=== PATIENT | female | born 1965 | race Caucasian/White ===

== ENCOUNTER 2017-04-06 10:46 | Emergency (ER) | payer OTHER ==
[2017-04-06 10:51] VITALS: BP 151/94; PULSE 74; TEMP 98.1; BMI 25.7
--- NOTE | 2017-04-06 11:07 | PDOC ---
History of Present Illness - General Chief Complaint: Pain, Acute Stated Complaint: FLANK PAIN Time Seen by Provider: 04/06/17 10:48 History Source: Patient (Patient walked in complaining of back pain, fever, frequent urination for the last few days , unrelieved by OTC medications) Exam Limitations: No Limitations - History of Present Illness Timing/Duration: getting worse Severity: moderate, severe Associated Symptoms: reports: fever/chills Past History - Travel Traveled outside of the country in the last 30 days: No Close contact w/someone who was outside of country & ill: No - Past Medical History Allergies/Adverse Reactions: Allergies Allergy/AdvReac Type Severity Reaction Status Date / Time No Known Allergies Allergy Verified 04/06/17 10:47 Home Medications: Ambulatory Orders Loratadine [Claritin] 10 mg PO DAILY 04/06/17 COPD: No Other medical history: MIGRAINES - Surgical History Abdominal Surgery: Yes (tubal ligation) - Suicide/Smoking/Psychosocial Hx Smoking History: Never smoked Hx Alcohol Use: No Drug/Substance Use Hx: No Substance Use Type: None Review of Systems - Review of Systems Able to Perform ROS?: Yes Is the patient limited Nepalese proficient: Yes Constitutional: Yes: Symptoms Reported, Fever, Malaise HEENTM: Yes: Throat Pain Respiratory: No: Symptoms reported, See HPI, Cough, Orthopnea, Shortness of Breath, SOB with Exertion, SOB at Rest, Stridor, Wheezing, Productive cough, Hemoptysis, Other Cardiac (ROS): No: Symptoms Reported, See HPI, Chest Pain, Edema, Irregular Heart Rate, Lightheadedness, Palpitations, Syncope, Chest Tightness, Other ABD/GI: Yes: Other (suprapubic discomfort) : Yes: See HPI Musculoskeletal: Yes: Back Pain Integumentary: No: Symptoms Reported, See HPI, Bruising, Change in Color, Change in Hair/Nails, Dryness, Erythema, Flushing, Lesions, Lumps, Pallor, Pruritus, Rash, Sweating, Other Neurological: No: Symptoms reported, See HPI, Headache, Numbness, Paresthesia, Pre-Existing Deficit, Seizure, Tingling, Tremors, Weakness, Unsteady Gait, Ataxia, Dizziness, Other All Other Systems: Reviewed and Negative *Physical Exam - Vital Signs Last Vital Signs Temp Pulse Resp BP Pulse Ox 98.1 F 74 18 151/94 100 01/24/18 10:47 04/06/17 10:47 04/06/17 10:47 04/06/17 10:47 04/06/17 10:47 - Physical Exam General Appearance: Yes: Nourished, Appropriately Dressed, Moderate Distress HEENT: positive: Normal ENT Inspection Neck: positive: Supple Respiratory/Chest: positive: Lungs Clear Cardiovascular: positive: Regular Rate, S1, S2 Gastrointestinal/Abdominal: positive: Normal Bowel Sounds, Tender Musculoskeletal: positive: CVA Tenderness, CVA Tenderness (R), CVA Tenderness (L ) Extremity: positive: Normal Capillary Refill, Normal Inspection, Normal Range of Motion Integumentary: positive: Normal Color, Warm Neurologic: positive: Fully Oriented, Alert, Normal Mood/Affect ED Treatment Course - LABORATORY CBC & Chemistry Diagram: 04/06/17 11:02 04/06/17 11:02 *DC/Admit/Observation/Transfer Diagnosis at time of Disposition: Lower back pain Qualifiers: Chronicity: acute Back pain laterality: unspecified Sciatica presence: without sciatica Qualified Code(s): M54.5 - Low back pain - Discharge Dispostion Disposition: HOME Condition at time of disposition: Improved - Referrals Referrals: Jaden Urena MD [Primary Care Provider] - - Patient Instructions Printed Discharge Instructions: DI for Back Strain or Sprain Additional Instructions: Take the muscle relaxant along with Motrin OTC 2- 3 times a day with food - Post Discharge Activity
[2017-04-06] MEDS ORDERED: KETOROLAC TROMETHAMINE 30 MG/1 ML VIAL ONE (11:08)
[2017-04-06] MEDS ORDERED: KETOROLAC TROMETHAMINE 30 MG/1 ML VIAL IVPUSH ONE (11:08)
[2017-04-06 11:33] LABS: HCG,QUALITATIVE URINE NEGATIVE; PH,URINE 6.5 (4.5-8); URINE APPEARANCE Clear; URINE BILIRUBIN Negative (NEGATIVE); URINE GLUCOSE (UA) Negative (NEGATIVE); URINE KETONE Negative (NEGATIVE); URINE NITRITE Negative (NEGATIVE); URINE PROTEIN Negative (NEGATIVE); URINE UROBILINOGEN 0.2 (0.2-1.0)
[2017-04-06 11:34] LABS: URINE BLOOD 1+ (NEGATIVE); URINE COLOR YELLOW
[2017-04-06 11:35] LABS: BASO % 0.9 % (0-2.0); EOS % 0.1 % (0-4.5); HEMATOCRIT 44.6 % (32.4-45.2); HEMOGLOBIN 14.2 GM/dl (10.7-15.3); LYMPH % 37.5 % (8-40); MCH 27.2 pg (25.7-33.7); MCHC 31.7 g/dl (32.0-36.0); MEAN CELL VOLUME 85.7 fl (80-96); MEAN PLT VOLUME 8.4 fl (7.5-11.1); MONO % 5.8 % (3.8-10.2); NEUT % 55.7 % (42.8-82.8); PLATELET COUNT 294 K/MM3 (134-434); RBC 5.21 M/mm3 (3.60-5.2); WHITE BLOOD COUNT 5.7 K/mm3 (4.0-10.8)
[2017-04-06 11:36] LABS: ALBUMIN 4.3 g/dl (3.5-5.0); ALK PHOS 51 U/L (32-92); ANION GAP 7 (8-16); BILIRUBIN,TOTAL 1.1 mg/dl (0.2-1.0); BLOOD UREA NITROGEN 17 mg/dl (7-18); CALCIUM 9.1 mg/dl (8.4-10.2); CHLORIDE 100 mmol/L (98-107); CO2 28 mmol/L (22-28); GLUCOSE,RANDOM 116 mg/dl (74-106); POTASSIUM 3.8 mmol/L (3.5-5.1); SGOT/AST 22 U/L (10-42); SGPT/ALT 23 U/L (10-40); SODIUM 135 mmol/L (136-145); TOT PROT 7.5 g/dl (6.4-8.3)
[2017-04-06] MEDS ORDERED: SODIUM CHLORIDE 1,000 ML IV ONE (11:46)
[2017-04-06] MEDS ORDERED: CYCLOBENZAPRINE HCL 10 MG TABLET (FP) PO ONE (13:31)
[2017-04-06] MEDS ORDERED: CYCLOBENZAPRINE HCL 10 MG TABLET (FP) ONE (13:33)
[2017-04-06 17:58] LABS: URINE BACTERIA FEW /hpf (NEGATIVE); URINE WBC 0-2 (0-5)
== END 2017-04-06 13:41 | disposition home or self-care (01) ==
LOC: FER 10:46
PROC: 3E0333Z Introduction of Anti-inflammatory into Peripheral Vein, Percutaneous Approach (ICD-10-PCS; principal; 2017-04-06)
PROC: 3E0337Z Introduction of Electrolytic and Water Balance Substance into Peripheral Vein, Percutaneous Approach (ICD-10-PCS; 2017-04-06)
DX: M54.5 Low back pain (principal)
CPT/HCPCS: 36415; 74176-TC; 80053; 81003; 81015; 84703; 85025; 87086; 99283-25

== ENCOUNTER 2018-02-10 10:29 | Emergency (ER) | payer OTHER ==
--- NOTE | 2018-02-10 10:44 | PDOC ---
History of Present Illness - General Chief Complaint: Injury Stated Complaint: FELL ON BACK AND SHOULDER Time Seen by Provider: 02/10/18 10:34 History Source: Patient - History of Present Illness Initial Comments: 02/10/18 10:43 52F with no pmh presents to the ED after fall backwards and to the side going down two steps as she was carrying a baby. She denies LOC or hitting her head. Complains mostly of left shoulder pain and lower back pain. Difficulty taking a deep breath. Not on AC. Took some Robaxin before going to bed but wasn't able to sleep. Past History - Past Medical History Allergies/Adverse Reactions: Allergies Allergy/AdvReac Type Severity Reaction Status Date / Time No Known Allergies Allergy Verified 02/10/18 10:44 Home Medications: Ambulatory Orders Loratadine [Claritin] 10 mg PO DAILY PRN 04/06/17 Dexamethasone 2 mg PO TID 02/10/18 Diclofenac Sodium 100 mg PO Q8H PRN 02/10/18 Methocarbamol [Robaxin -] 500 mg PO BID PRN #14 tablet 02/10/18 Methocarbamol [Robaxin -] 500 mg PO TID PRN 02/10/18 Oxycodone HCl/Acetaminophen [Percocet 5-325 mg Tablet] 1 tab PO Q6H PRN #12 tablet MDD 4 tabs 02/10/18 Prochlorperazine Maleate [Compazine] 10 mg PO PRN PRN 02/10/18 Verapamil HCl [Verapamil ER] 120 mg PO HS 02/10/18 COPD: No - Surgical History Abdominal Surgery: Yes (tubal ligation) - Suicide/Smoking/Psychosocial Hx Smoking History: Never smoked Hx Alcohol Use: No Drug/Substance Use Hx: No Substance Use Type: None Review of Systems - Review of Systems Able to Perform ROS?: Yes Is the patient limited Chinese proficient: No Constitutional: No: Symptoms Reported HEENTM: No: Symptoms Reported Respiratory: No: Symptoms reported Cardiac (ROS): No: Symptoms Reported ABD/GI: No: Symptoms Reported : No: Symptoms Reported Musculoskeletal: Yes: See HPI Integumentary: No: Symptoms Reported Neurological: No: Symptoms reported Endocrine: No: Symptoms Reported Hematologic/Lymphatic: No: Symptoms Reported All Other Systems: Reviewed and Negative *Physical Exam - Physical Exam General Appearance: Yes: Nourished, Appropriately Dressed, Mild Distress HEENT: positive: EOMI, FREDI, Normal ENT Inspection Respiratory/Chest: positive: Lungs Clear, Normal Breath Sounds. negative: Chest Tender, Respiratory Distress Gastrointestinal/Abdominal: positive: Normal Bowel Sounds, Flat, Soft. negative : Tender Musculoskeletal: positive: Vertebral Tenderness (over thoracic and lumbar spine. Tender upper left scapular region. ) Extremity: positive: Normal Capillary Refill Integumentary: positive: Other (swollen, tender lower left back. ) Neurologic: positive: Fully Oriented, Alert, Normal Mood/Affect, Normal Response , Motor Strength 5/5 Medical Decision Making - Medical Decision Making 02/10/18 11:09 52F presenting with back and shoulder pain after fall on stairs. Will obtain Ct to r/o traumatic pneumothorax and vertebral fractures. Pain control with percocet. 02/10/18 12:34 Ct spine and chest are negative. Patient told about small nodule vs pleural scarring in upper right lobe. xray read pending. 02/10/18 12:50 shoulder xray negative. Likely muscle spasm, bruise from fall. Will send home with percocet and robaxin. Follow up with pcp. *DC/Admit/Observation/Transfer Diagnosis at time of Disposition: Fall (on) (from) other stairs and steps, initial encounter - Discharge Dispostion Disposition: HOME Condition at time of disposition: Fair Decision to Admit order: No - Prescriptions Prescriptions: Methocarbamol [Robaxin -] 500 mg PO BID PRN #14 tablet PRN Reason: Back Pain Oxycodone HCl/Acetaminophen [Percocet 5-325 mg Tablet] 1 tab PO Q6H PRN #12 tablet MDD 4 tabs PRN Reason: Severe Pain - Referrals Referrals: Jennie Scherer MD [Primary Care Provider] - - Patient Instructions Printed Discharge Instructions: How to Prevent Falls Additional Instructions: Follow up with your primary care provider within the week. Come back to the emergency department for any new, worsening or concerning symptom such as but not limited to pain, decreased mobility and incontinence. - Post Discharge Activity
--- NOTE | 2018-02-10 10:47 | PDOC ---
Attending Attestation - Resident Resident Name: Donell Hernandez - ED Attending Attestation I have performed the following: I have examined & evaluated the patient, The case was reviewed & discussed with the resident, I agree w/resident's findings & plan, Exceptions are as noted - HPI HPI: 52 yo F history migraines presents s/p fall down 2 steps. She states she was carrying a baby, walking down the stairs, missed a step and fell. She fell onto her L shoulder as she attempted to protect the baby. No LOC, no head injury. She states she took a muscle relaxer last night for pain, but had difficulty sleeping all night due to pain. No weakness, numbness. Pain localizes to L shoulder, upper back, and lower back. - Physicial Exam PE: GENERAL: Awake, alert, and fully oriented. Appears uncomfortable HEAD: No signs of trauma EYES: PERRLA, EOMI, sclera anicteric, conjunctiva clear ENT: Auricles normal inspection, hearing grossly normal, nares patent, oropharynx clear without exudates. Moist mucosa NECK: Normal ROM, supple, no lymphadenopathy, JVD, or masses LUNGS: Breath sounds equal, clear to auscultation bilaterally. No wheezes, and no crackles HEART: Regular rate and rhythm, normal S1 and S2, no murmurs, rubs or gallops ABDOMEN: Soft, nontender, normoactive bowel sounds. No guarding, no rebound. No masses MSK: +Tenderness to L scapula, to mid-T spine, and to L1-5. Remainder of extremities with normal range of motion, no edema. No clubbing or cyanosis. No cords, erythema, or tenderness NEUROLOGICAL: Cranial nerves II through XII grossly intact. Normal speech, normal gait. Motor and sensation intact. SKIN: Warm, Dry, normal turgor, no rashes or lesions noted. - Medical Decision Making S/p fall onto L shoulder with pain to scapula and T and L spine. No neuro deficits. Will obtain XR shoulder, CT chest, T, and L spine.
[2018-02-10 11:03] VITALS: BP 125/80; PULSE 70; TEMP 98.1; BMI 24.9
== END 2018-02-10 12:50 | disposition home or self-care (01) ==
LOC: SUPCPDRO 10:29 → FER 10:29
DX: M25.512 Pain in left shoulder (principal); W10.9XXA Fall (on) (from) unspecified stairs and steps, initial encounter; Y93.89 Activity, other specified; Y92.89 Other specified places as the place of occurrence of the external cause
CPT/HCPCS: 71250-TC; 72128-TC; 72131-TC; 73030-TC-LT-FY; 99281-25

== ENCOUNTER 2020-12-18 10:23 | Emergency (ER) | payer OTHER ==
[2020-12-18 10:40] VITALS: BP 140/86; PULSE 74; TEMP 97.9; BMI 24.9
[2020-12-18] MEDS ORDERED: METOCLOPRAMIDE HCL 10 MG TABLET (FP) PO ONE ×2 (10:45→10:48)
[2020-12-18] MEDS ORDERED: ACETAMINOPHEN 325 MG TABLET (FP) PO ONE (10:45)
[2020-12-18] MEDS ORDERED: ACETAMINOPHEN 325 MG TABLET (FP) ONE (10:48)
[2020-12-18] MEDS ORDERED: ACETAMINOPHEN 1000 MG/100 ML VIAL (NON FORMULARY) IVPB ONE (11:01)
[2020-12-18] MEDS ORDERED: SODIUM CHLORIDE 0.9% 500 ML INFUS.BAG IV ONE (11:01)
[2020-12-18] MEDS ORDERED: METOCLOPRAMIDE HCL INJECTION 10 MG/2 ML VIAL IVPB ONE (11:01)
[2020-12-18] MEDS ORDERED: METOCLOPRAMIDE HCL INJECTION 10 MG/2 ML VIAL ONE (11:02)
[2020-12-18] MEDS ORDERED: ACETAMINOPHEN INJECTION 100 ML IVPB ONE (11:02)
== END 2020-12-18 13:09 | disposition home or self-care (01) ==
LOC: FER 10:23
PROC: 3E033GC Introduction of Other Therapeutic Substance into Peripheral Vein, Percutaneous Approach (ICD-10-PCS; principal; 2020-12-18)
DX: B02.9 Zoster without complications (principal)
CPT/HCPCS: 99284-25; J0131

== ENCOUNTER 2023-08-19 09:54 | Day surgery (SDC) | payer OTHER ==
[2023-08-11 16:28] VITALS: BMI 26.9
[2023-08-19 10:25] VITALS: TEMP 97.3
[2023-08-19] MEDS ORDERED: LIDOCAINE HCL/PF 2% SDV 5ML VIAL ONE (11:14)
[2023-08-19] MEDS ORDERED: PROPOFOL 20 ML ONE (11:14)
[2023-08-19 12:33] VITALS: BP 114/64; PULSE 73; RESP 18
== END 2023-08-19 12:45 | disposition home or self-care (01) ==
LOC: FASU-ENDO 09:54
PROVIDERS: ATTEND Internal Medicine Gastroenterology
PROC: 0DBN8ZX Excision of Sigmoid Colon, Via Natural or Artificial Opening Endoscopic, Diagnostic (ICD-10-PCS; 2023-08-19)
PROC: 0DBP8ZX Excision of Rectum, Via Natural or Artificial Opening Endoscopic, Diagnostic (ICD-10-PCS; principal; 2023-08-19 11:00)
DX: Z12.11 Encounter for screening for malignant neoplasm of colon (principal); D12.5 Benign neoplasm of sigmoid colon; K63.5 Polyp of colon; K64.1 Second degree hemorrhoids
CPT/HCPCS: 88305-TC